=== PATIENT | female | born 1965 | race Hispanic/Latino ===

== ENCOUNTER 2017-12-03 18:39 | Inpatient (IN) | payer BC, OTHER ==
[2017-12-03] MEDS ORDERED: NITROSTAT SL PRN (21:37)
[2017-12-03] MEDS ORDERED: CARAFATE PO ONE (21:37)
[2017-12-03] MEDS ORDERED: ALUM-MAG HYDROX-SIMETH 200-200-20MG/5ML PO ONE (21:37)
--- NOTE | 2017-12-03 21:39 | Emergency Department Report ---
ED Chest Pain HPI - General Chief Complaint: Chest Pain Stated Complaint: UNK Time Seen by Provider: 12/03/17 21:17 Source: patient, RN notes reviewed Mode of arrival: Ambulatory Limitations: No Limitations - History of Present Illness Initial Comments: This is a 52-year-old female, the patient is previously unknown to this provider , her primary care doctor's with the [employer] at work, she endorses a past medical history of high cholesterol, diabetes, denies hypertension. Patient presents to the ER with a complaint of chest tightness, diaphoresis, shortness of breath, lightheadedness, near syncope. Symptoms are intermittent for the past couple days. The chest tightness does not radiate anywhere. Patient reports recent road trip to [place]. Patient also works as a high school music teacher. No recent stress test. no recent echocardiogram. MD Complaint: chest pain -: Gradual Onset: during rest Pain Location: substernal Pain Radiation: none Severity: mild Severity scale (0 -10): 3 Quality: tightness, aching Consistency: intermittent Improves With: nothing Worsens With: nothing Context: recent travel re: diaphoresis, dyspnea Other Symptoms: palpitations. denies: cough, fever, syncope, rash, acid taste in mouth, leg swelling Aspirin use within the Past 7 Days: (1) Yes - Related Data On Oral Contraceptives: No Home Medications Medication Instructions Recorded Confirmed Last Taken Hydrochlorothiazide [HCTZ] 25 mg PO QDAY 12/03/17 12/03/17 Unknown Oxybutynin Chloride [Oxybutynin 5 mg PO QDAY 12/03/17 12/03/17 Unknown Chloride ER] Allergies Allergy/AdvReac Type Severity Reaction Status Date / Time ibuprofen [From Motrin] Allergy Rash Verified 12/03/17 06:58 Heart Score - HEART Score History: Moderately suspicious EKG: Normal Age: 45-65 Risk factors: 1-2 risk factors Troponin: < normal limit HEART Score: 3 - Critical Actions Critical Actions: 0-3 pts:0.9-1.7%risk of adverse cardiac event.Candidate for discharge ED Review of Systems ROS: Stated complaint: UNK Other details as noted in HPI Constitutional: diaphoresis. denies: fever Eyes: denies: vision change ENT: denies: epistaxis Respiratory: denies: wheezing Cardiovascular: chest pain, palpitations Gastrointestinal: as per HPI Genitourinary: as per HPI Musculoskeletal: as per HPI Skin: as per HPI Neurological: as per HPI, weakness Psychiatric: as per HPI ED Past Medical Hx - Past Medical History Hx Hypertension: Yes Hx Diabetes: Yes (history of diabetes resolved after gastric bypass) Hx Headaches / Migraines: Yes Additional medical history: Hypercholesterolemia - Surgical History Additional Surgical History: gastric by pass, hysterectomy - Social History Smoking Status: Never Smoker Substance Use Type: None - Medications Home Medications: Home Medications Medication Instructions Recorded Confirmed Last Taken Type Hydrochlorothiazide [HCTZ] 25 mg PO QDAY 12/03/17 12/03/17 Unknown History Oxybutynin Chloride [Oxybutynin 5 mg PO QDAY 12/03/17 12/03/17 Unknown History Chloride ER] ED Physical Exam - General Limitations: No Limitations General appearance: alert, in no apparent distress - Head Head exam: Present: atraumatic, normocephalic - Eye Eye exam: Present: normal appearance, PERRL, EOMI, other (visual acuity intact to finger counting, color perception, reading at a close distance). Absent: nystagmus - ENT ENT exam: Present: normal exam, normal orophraynx, mucous membranes moist, normal external ear exam - Neck Neck exam: Present: normal inspection, full ROM - Respiratory Respiratory exam: Present: normal lung sounds bilaterally. Absent: respiratory distress - Cardiovascular Cardiovascular Exam: Present: regular rate, normal rhythm, normal heart sounds. Absent: systolic murmur, diastolic murmur, rubs, gallop - GI/Abdominal GI/Abdominal exam: Present: soft, normal bowel sounds. Absent: distended, tenderness, guarding, rebound, rigid, pulsatile mass - Extremities Exam Extremities exam: Present: normal inspection, full ROM, normal capillary refill. Absent: pedal edema, joint swelling, calf tenderness - Back Exam Back exam: Present: normal inspection, full ROM. Absent: tenderness, CVA tenderness (R), paraspinal tenderness, vertebral tenderness - Neurological Exam Neurological exam: Present: alert, oriented X3, CN II-XII intact, normal gait ( no pass pointing. Normal [id number]. Negative Romberg. Normal gait. Normal tandem gait), other (Extraocular movements intact. Tongue midline. No facial droop. Facial sensation intact to light touch in the V1, V2, V3 distribution bilaterally. 5 and 5 strength in 4 extremities.. Sensation is intact to light touch in 4 extremities.). Absent: motor sensory deficit - Psychiatric Psychiatric exam: Present: normal affect, normal mood - Skin Skin exam: Present: warm, dry, intact, normal color. Absent: rash ED Course Vital Signs 12/03/17 12/03/17 12/03/17 19:07 21:35 22:00 Temperature 98.5 F 98.3 F Pulse Rate 69 86 64 Respiratory 18 18 10 L Rate Blood Pressure 129/88 121/86 Blood Pressure 126/82 [Left] O2 Sat by Pulse 96 99 100 Oximetry 12/03/17 12/03/17 12/03/17 22:30 22:31 23:00 Temperature Pulse Rate 72 74 86 Respiratory 13 13 18 Rate Blood Pressure 129/87 129/87 126/91 Blood Pressure [Left] O2 Sat by Pulse 98 99 98 Oximetry 12/04/17 12/04/17 00:00 01:00 Temperature Pulse Rate 82 84 Respiratory 18 15 Rate Blood Pressure 137/82 105/68 Blood Pressure [Left] O2 Sat by Pulse 98 98 Oximetry KATIE score - Katie Score Age > 65: (0) No Aspirin use within the Past 7 Days: (1) Yes 3 or more CAD Risk Factors: (0) No 2 or more Angina events in past 24 hrs: (1) Yes Known CAD with more than 50% Stenosis: (0) No Elevated Cardiac Markers: (0) No ST Deviation Greater than 0.5mm: (0) No KATIE Score: 2 ED Medical Decision Making - Lab Data Vital Signs - 24 hr 12/03/17 12/03/17 12/03/17 19:07 22:00 22:30 Temperature 98.5 F Pulse Rate 69 64 72 Respiratory 18 10 L 13 Rate Blood Pressure 129/88 121/86 129/87 O2 Sat by Pulse 96 100 98 Oximetry Lab Results 12/03/17 12/03/17 Range/Units 21:59 21:59 PT 13.9 (12.2-14.9) Sec. INR 1.02 (0.87-1.13) APTT 26.4 (24.2-36.6) Sec. D-Dimer 149.91 (0-234) ng/mlDDU Magnesium 2.10 (1.7-2.3) mg/dL Troponin T < 0.010 (0.00-0.029) ng/mL - EKG Data -: EKG Interpreted by Me - EKG Data 12/03/17 22:47 Sinus, 64 bpm, normal axis, normal intervals, morphological consistent with STEMI. Prior to EKG is also unremarkable. - Radiology Data Radiology results: image reviewed interpreted by me: X-ray of the chest, interpreted by myself: No acute disease - Medical Decision Making Differential diagnosis, including without limited to, orthostasis, vagal event, acute coronary syndrome, pneumonia, pulmonary embolus Assessment and plan: 52-year-old female, low risk by well's criteria, with a negative d-dimer, with chest tightness, shortness of breath, diaphoresis and near syncope. I contacted the [facility] and discussed the case with their physician, Dr. Vanda Aleman. She indicates that they cannot accommodate the patient closely as an outpatient for cardiac risk stratification, and she authorized the patient to be admitted to this hospital for cardiac risk stratification. She does report that the patient had a cardiac Holter monitor acquired in August which demonstrated a number of PVCs. Case was presented to the Hospital physician, Dr. Velasquez, who accepted the patient to the medical service for cardiac risk stratification. Critical care attestation.: If time is entered above; I have spent that time in minutes in the direct care of this critically ill patient, excluding procedure time. ED Disposition Clinical Impression: Chest pain, Near syncope Disposition: OP ADMIT IP TO THIS HOSP Is pt being admited?: Yes Does the pt Need Aspirin: Yes Condition: Good
[2017-12-03] MEDS ORDERED: K-DUR PO ONE (21:40)
[2017-12-03 22:30] LABS: INR 1.02 (0.87-1.13)
[2017-12-03 22:31] LABS: Partial Thromboplastin Time 26.4 Sec. (24.2-36.6)
[2017-12-03] MEDS ORDERED: BABY ASPIRIN PO ONE (22:49)
--- NOTE | 2017-12-03 23:21 | XRay Report ---
FINAL REPORT PROCEDURE: Chest. TECHNIQUE: PA and lateral views. HISTORY: Chest pain. COMPARISON: No prior studies are available for comparison. FINDINGS: The heart size is normal. There is mild tortuosity of the thoracic aorta. The lungs are clear and well expanded. There are no pleural effusions. The soft tissues and regional skeleton are unremarkable. IMPRESSION: No evidence of acute disease.
[2017-12-04] MEDS ORDERED: MORPHINE IV PRN (00:04)
[2017-12-04] MEDS ORDERED: ZOFRAN IV PRN (00:05)
[2017-12-04] MEDS ORDERED: TYLENOL PO PRN (00:06)
[2017-12-04] MEDS ORDERED: NITROSTAT SL PRN (00:08)
[2017-12-04] MEDS: NITRO-BID 2% TP SCH ×4 (01:40→14:00)
[2017-12-04 01:45] LABS: Creatine Kinase MB 1.4 ng/mL (0.0-4.0)
[2017-12-04 07:22] LABS: Creatine Kinase MB 1.2 ng/mL (0.0-4.0)
[2017-12-04] MEDS ORDERED: LEXISCAN IV ONE ×2 (08:28→09:00)
--- NOTE | 2017-12-04 10:12 | History and Physical Report ---
CHIEF COMPLAINT: Chest pain. Other complaint includes irregular heartbeat, which she described as fluttering. HISTORY OF PRESENT ILLNESS: The patient is a 52-year-old female, who states she has been having chest pain going on for about 4 days. The pain is in the retrosternal area and appears as tightness in the chest pain and does not radiate and is associated with shortness of breath, lightheadedness, and near syncopal feeling. Also, the patient said that there was symptom of nausea, but no vomiting and also describes some fluttering sensation in the chest going on for quite some time prior to the chest pain and continued with the chest pain. There is no history of fever, no history of cough, and no history of diaphoresis. The patient was seen in the Emergency Room. PAST MEDICAL HISTORY: Pertinent for diabetes mellitus, diet controlled; also the patient has past history of migraine headache, hypercholesterolemia. PAST SURGICAL HISTORY: Pertinent for gastric bypass surgery and hysterectomy. FAMILY HISTORY: Pertinent for coronary artery disease in the mother. SOCIAL HISTORY: The patient does not smoke, does not drink alcohol and does not use illicit drugs. MEDICATIONS: The patient is on Pepcid 20 mg by mouth daily and [place] 5/325 mg 1 by mouth every 6 hours as needed for pain. ALLERGIES: THE PATIENT IS ALLERGIC TO IBUPROFEN. REVIEW OF SYSTEMS: CONSTITUTIONAL: There is no fever, no chills, no diaphoresis. HEENT: There is no headache or sore throat. CARDIOVASCULAR SYSTEM: Chest pain is present. No orthopnea. Palpitation. RESPIRATORY SYSTEM: Shortness of breath is present. No cough. GASTROINTESTINAL SYSTEM: There is nausea but no vomiting. No abdominal pain, diarrhea or constipation. NEUROLOGICAL SYSTEM: There is dizziness and near syncopal feeling with no change in mental status. MUSCULOSKELETAL SYSTEM: There is no joint pain or swelling. DERMATOLOGICAL SYSTEM: There is no skin rash or itching. GENITOURINARY SYSTEM: There are no dysuria, hematuria or flank pain. Rest of system review is normal. PHYSICAL EXAMINATION: GENERAL: At the time of exam, the patient was found to be alert, oriented x 3, and not in acute distress. VITAL SIGNS: Shows normal temperature with pulse of 82, respiration of 18, blood pressure 137/82, and O2 sat of 98% on room air. HEENT: Showed pupils to be equal, round, and reactive to light and accommodative. Extraocular muscles are intact. NECK: Supple with no JVD or carotid bruit. CARDIOVASCULAR: Showed normal first and second heart sounds with some skipped beats, with no murmurs. RESPIRATORY SYSTEM: Show good air entry on both sides of the lung with no abnormal breath sounds. GASTROINTESTINAL SYSTEM: Show abdomen to be full, soft, nontender with no organomegaly or rigidity. NEUROLOGIC: Shows no focal deficit. MUSCULOSKELETAL SYSTEM: Show no joint swelling or tenderness. DERMATOLOGICAL SYSTEM: Show no skin rash. GENITOURINARY SYSTEM: Showing no costovertebral angle tenderness. PERTINENT LABORATORY DATA AND IMAGING STUDIES: The patient had a chest x-ray done that shows no evidence of cardiopulmonary lesion. The patient's lab tests show unremarkable cardiac enzymes and normal lab results. DIAGNOSES: 1. Chest pain. 2. Irregular heartbeat. PLAN: The patient will be admitted as inpatient to telemetry and we would have cardiac enzymes checked q.6 hours x 2 more levels. The patient will be n.p.o. for Lexiscan stress test in the morning and will have 2D echo done in the morning to also check the heart for irregular heartbeat. The patient will be on nitro paste 1 inch to anterior chest wall q.6 hours and will be on aspirin 325 mg by mouth daily and Tylenol 650 mg by mouth every for fever and headache. The patient will be on sublingual nitroglycerin 0.4 mg q.5 minutes for breakthrough chest pain. The patient will be on IV morphine 2 mg every 5 minutes as needed for chest pain and she would be on aspirin 325 mg by mouth daily. The patient will also be on oxygen by nasal cannula at 2 liter per minute. The patient's home medications will be reconciled and started accordingly. JOB# [id number] OCN/NTS
--- NOTE | 2017-12-04 10:31 | Progress Note ---
Assessment and Plan Assessment and plan: Chest pain. Continued chest pain pathway and follow-up stress thallium and echocardiogram results. Hypertension. Resume antihypertensive medications. Hypercholesterolemia. History Interval history: Patient seen in the stress lab. Patient currently denies any chest pain, shortness of breath. Hospitalist Physical - Constitutional Vitals: Temp Pulse Resp BP Pulse Ox 98.1 F 70 20 109/76 97 12/04/17 06:06 12/04/17 06:11 12/04/17 06:06 12/04/17 06:11 12/04/17 06:06 General appearance: Present: no acute distress, well-nourished - EENT Eyes: Present: PERRL, EOM intact ENT: hearing intact, clear oral mucosa, dentition normal - Neck Neck: Present: supple, normal ROM - Respiratory Respiratory effort: normal Respiratory: bilateral: CTA - Cardiovascular Rhythm: regular Heart Sounds: Present: S1 & S2. Absent: gallop, rub - Extremities Extremities: no ischemia, No edema, Full ROM - Abdominal General gastrointestinal: soft, non-tender, non-distended, normal bowel sounds - Integumentary Integumentary: Present: clear, warm, dry - Neurologic Neurologic: CNII-XII intact, moves all extremities Results - Labs Labs: Laboratory Last Values PT 13.9 Sec. (12.2-14.9) 12/03/17 21:59 INR 1.02 (0.87-1.13) 12/03/17 21:59 APTT 26.4 Sec. (24.2-36.6) 12/03/17 21:59 D-Dimer 149.91 ng/mlDDU (0-234) 12/03/17 21:59 Magnesium 2.10 mg/dL (1.7-2.3) 12/03/17 21:59 Total Creatine Kinase 76 units/L (30-135) 12/04/17 06:56 CK-MB (CK-2) 1.2 ng/mL (0.0-4.0) 12/04/17 06:56 CK-MB (CK-2) Rel Index 1.5 (0-4) 12/04/17 06:56 Troponin T < 0.010 ng/mL (0.00-0.029) 12/04/17 06:56
[2017-12-04] MEDS: HEPARIN SUB-Q SCH ×2 (13:24→22:59)
[2017-12-04] MEDS: ASPIRIN PO SCH (13:24)
--- NOTE | 2017-12-05 02:16 | Treadmill Report ---
ORDERING PHYSICIAN: Dr. Marcin Alonso. INDICATION FOR THE PROCEDURE: Chest pain. FINDINGS: There is no scintigraphic evidence of myocardial ischemia. The left ventricle is normal in size and systolic function. Left ventricular ejection fraction is measured at 60%. Normal wall motion and wall thickening is noted on gated imaging. CONCLUSION: Normal perfusion scan. JOB# [id number] JONO/WILMER
[2017-12-05 05:35] VITALS: BP 113/79
[2017-12-05] MEDS: NITRO-BID 2% TP SCH ×3 (07:58→14:03)
[2017-12-05] MEDS ORDERED: DITROPAN XL PO SCH (10:00)
[2017-12-05] MEDS ORDERED: HCTZ PO SCH (10:00)
[2017-12-05] MEDS: HEPARIN SUB-Q SCH (11:11)
[2017-12-05] MEDS: ASPIRIN PO SCH (11:11)
--- NOTE | 2017-12-05 13:48 | Discharge Summary ---
<MARY WELLS - Last Filed: 12/05/17 14:58> Providers - Providers Date of Admission: 12/04/17 01:53 Date of discharge: 12/05/17 Attending physician: AARON VÁZQUEZ Primary care physician: KARL PITTS Hospitalization Reason for admission: Chest pain Condition: Good Hospital course: Patient is a 52-year-old female with past medical history of high cholesterol, diabetes, denies hypertension who, presents to the ER with a complaint of chest tightness. Patient was diagnosed with chest pain, hypertension and Hypercholesterolemia. Patient presented with atypical chest pain, ACS was ruled out, stress test normal MPI, negative cardiac enzymes, ECGs shows normal sinus rythm, CXR WNL. Patient chest pain probably from musculoskeletal or gastritis. He was treated with IV fluid hydration and antihypertensive medications. Patient is clinically improved and stable for discharge. Patient advised to follow-up with her primary care provider. Discharge Diagnosed Chest Pain due to Costochondritis Hypertension Hypercholesterolemia Disposition: TO HOME OR SELFCARE Time spent for discharge: 33 minutes Core Measure Documentation - Palliative Care Palliative Care/ Comfort Measures: Not Applicable - Core Measures Any of the following diagnoses?: none Exam - Constitutional Vitals: Temp Pulse Resp BP Pulse Ox 98.2 F 61 18 113/79 96 12/05/17 04:56 12/05/17 10:00 12/05/17 04:56 12/05/17 04:56 12/05/17 04:56 General appearance: Present: no acute distress - EENT Eyes: Present: PERRL ENT: hearing intact - Neck Neck: Present: supple - Respiratory Respiratory effort: normal Respiratory: bilateral: CTA - Cardiovascular Rhythm: regular Heart Sounds: Present: S1 & S2 - Abdominal General gastrointestinal: Present: soft, non-tender Female genitourinary: Present: deferred - Rectal Rectal Exam: deferred - Integumentary Integumentary: Present: clear, warm, dry - Musculoskeletal Musculoskeletal: strength equal bilaterally - Psychiatric Psychiatric: appropriate mood/affect - Neurologic Neurologic: moves all extremities - Allied Health Allied health notes reviewed: nursing Plan Diet: low fat, low cholesterol, low salt Follow up with: KARL PITTS MD [Primary Care Provider] - 3-5 Days Forms: Discharge Signature Page, Work/School Release Form Prescriptions: Hydrochlorothiazide [HCTZ] 25 mg PO QDAY #30 tablet Oxybutynin Xl [Ditropan Xl] 5 mg PO QDAY 30 Days tablet <AARON VÁZQUEZ - Last Filed: 12/09/17 10:10> Providers - Providers Date of Admission: 12/04/17 01:53 Attending physician: AARON VÁZQUEZ Primary care physician: KARL PITTS Hospitalization Hospital course: I saw and evaluated the patient. I agree with the findings and the plan of care as documented in the Nurse Practitioner's~note, with the following corrections and additions. Exam - Constitutional Vitals: Temp Pulse Resp BP Pulse Ox 98.2 F 61 18 113/79 96 12/05/17 04:56 12/05/17 10:00 12/05/17 04:56 12/05/17 04:56 12/05/17 04:56
== END 2017-12-05 15:20 | disposition home or self-care (01) | DRG 206 ==
LOC: ED 18:39 → 4A 12-04 01:53
PROVIDERS: ADMIT Internal Medicine; ATTEND Hospitalist
DX: M94.0 Chondrocostal junction syndrome [Tietze] (principal); E11.9 Type 2 diabetes mellitus without complications; R55 Syncope and collapse; I10 Essential (primary) hypertension; E78.00 Pure hypercholesterolemia, unspecified; Z98.84 Bariatric surgery status
CPT/HCPCS: 36415; 71046; 78452; 82550; 82553; 83735; 84484; 85379; 85610; 85730; 93005; 93010; 93017; 93306; A9502; J1644; J2785

== ENCOUNTER → 2017-12-03 | Emergency (ER) | payer BC ==
[~2017-12-03] MED LIST: ASPIRIN PO ONE
[2017-12-03 07:49] LABS: Basophils % (Auto) 0.3 % (0.0-1.8); Eosinophils % (Auto) 0.2 % (0.0-4.3); Hematocrit 44.5 % (30.3-42.9); Hemoglobin 15.3 gm/dl (10.1-14.3); Lymphocytes # (Auto) 2.5 K/mm3 (1.2-5.4); Mean Corpuscular HGB Conc 34 % (30-34); Mean Corpuscular Hemoglobin 29 pg (28-32); Mean Corpuscular Volume 85 fl (79-97); Monocytes # (Auto) 0.8 K/mm3 (0.0-0.8); Platelet Count 180 K/mm3 (140-440); Red Blood Count 5.21 M/mm3 (3.65-5.03); Red Cell Distribution Width 14.8 % (13.2-15.2)
[2017-12-03 08:17] LABS: BUN/Creatinine Ratio 17; Blood Urea Nitrogen 17 mg/dL (7-17); Calcium 9.6 mg/dL (8.4-10.2); Hemolysis Index 9
== END ==
LOC: ED 06:09
DX: R07.9 Chest pain, unspecified (principal); Z53.21 Procedure and treatment not carried out due to patient leaving prior to being seen by health care provider
CPT/HCPCS: 36415; 80048; 84484; 85025; 93005; 93010